=== PATIENT | female | born 1960 | race Caucasian/White ===

== ENCOUNTER 2025-06-22 05:42 | Inpatient (IN) | payer OTHER ==
[2025-06-14 14:05] LABS: LEUKOCYTE ESTERASE ,URINE NEGATIVE (Neg); NITRITES, URINE NEGATIVE (Neg); OCCULT BLOOD,URINE NEGATIVE (Neg)
[2025-06-14 14:08] LABS: UA COLLECTION TYPE CLN CATCH MIDSTREAM
[2025-06-14 14:09] LABS: MEAN PLATELET VOLUME 8.9 FL (7.4-10.4); PRE OP HEMATOCRIT 42.1 % (35.0-45.0); PRE OP HEMOGLOBIN 14.3 g/dL (12.0-16.0); PRE OP PLATELET COUNT 231 X10'3 (140-440); PRE OP WHITE BLOOD COUNT 8.6 10'3 (4.8-10.8); RED CELL DISTRIBUTION WIDTH 14.0 % (11.5-14.5)
--- NOTE | 2025-06-14 14:22 | ELECTROCARDIOGRAPH REPORT ---
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 MUNDO Mina Measurements Intervals [place] Rate: 67 P: 3 TN: 137 QRS: 53 QRSD: 88 T: 41 QT: 387 QTc: 409 Interpretive Statements Sinus rhythm Electronically Signed On 06-14-2025 17:27:[address] MUNDO Mina Please click the below link to view image of tracing.
[2025-06-14 14:23] LABS: PRE OP INR 1.0 INR; PRE OP PARTIAL THROMB. TIME 26.0 SECONDS (22-32); PRE OP PROTIME 10.1 SECONDS (9.0-12.0)
[2025-06-14 14:25] LABS: CREATININE 0.61 MG/DL (0.40-0.90); PRE OP ALT 27 U/L (30-65); PRE OP ANION GAP 5 (8-16); PRE OP AST 33 U/L (10-37); PRE OP BILIRUB, TOTAL 0.4 MG/DL (0.0-1.0); PRE OP GLUCOSE 93 MG/DL (70-104); PRE OP POTASSIUM 4.1 MMOL/L (3.4-5.1); PRE OP SODIUM 141 MMOL/L (135-145); TOTAL CARBON DIOXIDE 31.2 MMOL/L (24-32); eGFR > 90 ML/MIN
--- NOTE | 2025-06-14 15:07 | RADIOLOGY REPORT ---
EXAM: DI CHEST,TWO VIEWS CLINICAL HISTORY: pain COMPARISON: None TECHNIQUE: Frontal and lateral view of the chest was obtained FINDINGS: Lines and Tubes: None Lungs: No focal consolidation. Pleura: No effusion. No pneumothorax. Cardiomediastinal contours: Unremarkable Bones: No acute osseous abnormality. IMPRESSION: No acute cardiopulmonary disease.
--- NOTE | 2025-06-14 15:35 | VASCULAR REPORT ---
PROCEDURE: [facility] VENOUS Exam Date: 06/14/2025 01:49 PM History: Preop vein mapping Findings: Technique: Duplex Doppler evaluation of the superficial veins of the right and left lower extremities was perfor med including color Doppler and spectral/pulsed waveform analysis. Findings: Measurements of the lower extremity superficial veins in millimeters (mm) are provided below. RIGHT GREAT SAPHENOUS VEIN (GSV) in mm: 4.5 at proximal thigh, patent. 4.2 at mid thigh, patent. 3.2 at distal thigh, patent. LEFT GREAT SAPHENOUS VEIN (GSV) in mm: 3.8 at proximal thigh, patent. 3.7 at mid thigh, patent. 2.6 at distal thigh, patent. Impression: Lower extremity superficial venous mapping as detailed above.
[2025-06-15 08:56] LABS: ABG BASE EXCESS 2.0 mmol/L (-2.0-3.0); ABG HCO3 26.5 mmol/L (21.0-28.0); ABG OXYGEN SATURATION 95.5 % (94.0-98.0); ABG PCO2 (T) 41.2 mmHg (32.0-45.0); ABG PH (T) 7.427 (7.350-7.450); ABG PO2 (T) 77.9 mmHg (83.0-108.0); ALLEN'S TEST POSITIVE; FCOHb 0.0 % (0.5-1.5); FHHb 4.5 % (0.0-5.0); FIO2 21.0 mmHg/%; FMetHb 0.3 % (0.0-1.5); FO2Hb 95.2 % (94.0-98.0); MODE ROOM AIR; PATIENT TEMPERATURE 37.0; TOTAL HEMOGLOBIN 14.5 G/dl (12.0-16.0)
--- NOTE | 2025-06-15 13:45 | PROCEDURE NOTE - Respiratory ---
Procedure Note-Respiratory Providers to CC Copies To 1: SYLWIA BABIN MD; TYSHAWN GOMEZ III, MD Procedure Name: This is a spirometry study dated June 14, 2025. There was also a room air blood gas obtained from this patient on the same date. Spirometry measurements: There is significant reduction in the vital capacity and the FEV1 measurements. The FEV1 ratio is also reduced. Several of the flow rate measurements show reduction. Bronchodilator was not given as part of the study. Conclusion: This study is abnormal. There is evidence for obstructive ventilatory defect in the moderate category. These findings suggest a moderate degree of COPD, smoking-related. We have no previous studies for comparison. A blood gas was drawn from this patient while the patient was breathing room air. The blood pH is normal. The pCO2 is normal. The room air oxygen level is borderline reduced at 78 mmHg. MINH CANDELARIA MD Jun 15, 2025 13:45
[~2025-06-22] VITALS: Ht 157.5 cm; Wt 124.4 kg
[2025-06-22] VITALS (26 sets, daily range): BP systolic 100–152; BP diastolic 60–87; PULSE 76–89; RESP 10–20; TEMP 97.8; O2SAT 93–98
[2025-06-22] MEDS: Insulin Reg/NS 100units/100mL 100 ML IV SCH ×2 (05:30→10:30)
[~2025-06-22 05:42] MED LIST: ATOR10TA70 PO; dextrose 50%-water 50ml dispensing syringe IV PRN; insulin glargine (Lantus) pen - multi-dose SQ PRN
[2025-06-22] MEDS: metoprolol tartrate 12.5mg (1/2 tablet) PO ONE (06:12)
[2025-06-22] MEDS: mupirocin 2% nasal ointment 1gm UD NS ONE (06:13)
[2025-06-22] MEDS: VANCOMYCIN/H2O 1.5g/300mL PB 300 ML IV ONE (06:17)
[2025-06-22] MEDS: ringers solution, lacted 1,000 ML IV SCH (06:17)
[2025-06-22] MEDS: ceFAZolin 2gm/dext,iso 50mL 50 ML IV ONE (06:18)
[2025-06-22] MEDS ORDERED: vancomycin 1,000mg inj ONE (07:08)
[2025-06-22] MEDS: midazolam 1 mg/ML 2ml injection IV ONE (07:56)
[2025-06-22] MEDS ORDERED: MIDAZolam 1 MG/ML 5ML VIAL ONE (07:57)
[2025-06-22] MEDS ORDERED: SUfentanil 50mcg/ml 1ml amp IV ONE (07:58)
[2025-06-22] MEDS ORDERED: propofol inj 20 ML IV ONE (07:58)
[2025-06-22] MEDS ORDERED: potassium Cl 2 mEq/ml inj IV ONE (08:00)
[2025-06-22] MEDS ORDERED: rocuronium 10mg/ml inj IV ONE ×2 (08:00)
[2025-06-22 08:46] LABS: ABG BASE EXCESS 0.1 mmol/L (-2.0-3.0); ABG HCO3 25.2 mmol/L (21.0-28.0); ABG OXYGEN SATURATION 97.3 % (94.0-98.0); ABG PCO2 42.5 mmHg (32.0-45.0); ABG PH 7.391 (7.350-7.450); ABG PO2 95.8 mmHg (83.0-108.0); CL (ABG) 103 mmol/L (98-107); FCOHb 0.3 % (0.5-1.5); FHHb 2.7 % (0.0-5.0); FMetHb 0.2 % (0.0-1.5); FO2Hb 96.8 % (94.0-98.0); GLUCOSE (ABG) 131 mg/dl (65-95); IONIZED CA (ABG) 1.13 mmol/L (1.15-1.33); K (ABG) 4.5 mmol/L (3.40-4.50); TOTAL HEMOGLOBIN 13.1 G/dl (12.0-16.0)
[2025-06-22 08:53] LABS: ACT @ 1.70 U 259 SEC (193-297); ACT @ 2.84 U 360 SEC (260-420); BASELINE ACT 137 SEC (101-148); PATIENT WEIGHT 90.0k KG
[2025-06-22] MEDS ORDERED: BUPIVAcaine/PF 2.5mg/ml (0.25%) 10ml vial ONE (09:04)
[2025-06-22] MEDS ORDERED: LIDOcaine 1% 30ml preserv. free vial ONE (09:04)
[2025-06-22] MEDS: LIDOcaine 1% 30ml preserv. free vial IJ ONE (09:15)
[2025-06-22 09:20] LABS: ACTIVATED CLOTTING TIME 635.0 SEC (101-148)
[2025-06-22 09:29] LABS: ABG BASE EXCESS 0.3 mmol/L (-2.0-3.0); ABG HCO3 24.7 mmol/L (21.0-28.0); ABG OXYGEN SATURATION 99.2 % (94.0-98.0); ABG PCO2 39.2 mmHg (32.0-45.0); ABG PH 7.418 (7.350-7.450); ABG PO2 258.7 mmHg (83.0-108.0); CL (ABG) 103 mmol/L (98-107); FCOHb 0.3 % (0.5-1.5); FHHb 0.8 % (0.0-5.0); FMetHb 0.3 % (0.0-1.5); FO2Hb 98.6 % (94.0-98.0); GLUCOSE (ABG) 126 mg/dl (65-95); IONIZED CA (ABG) 1.02 mmol/L (1.15-1.33); K (ABG) 5.2 mmol/L (3.40-4.50); TOTAL HEMOGLOBIN 9.6 G/dl (12.0-16.0)
[2025-06-22 09:36] LABS: ACTIVATED CLOTTING TIME 514.0 SEC (101-148)
[2025-06-22 09:53] LABS: ABG BASE EXCESS -1.2 mmol/L (-2.0-3.0); ABG HCO3 24.1 mmol/L (21.0-28.0); ABG OXYGEN SATURATION 99.3 % (94.0-98.0); ABG PCO2 42.8 mmHg (32.0-45.0); ABG PH 7.369 (7.350-7.450); CL (ABG) 105 mmol/L (98-107); FCOHb 0.3 % (0.5-1.5); FHHb 0.7 % (0.0-5.0); FMetHb 0.0 % (0.0-1.5); FO2Hb 99.0 % (94.0-98.0); GLUCOSE (ABG) 140 mg/dl (65-95); IONIZED CA (ABG) 1.06 mmol/L (1.15-1.33); K (ABG) 5.4 mmol/L (3.40-4.50); TOTAL HEMOGLOBIN 10.1 G/dl (12.0-16.0)
[2025-06-22 10:03] LABS: ACTIVATED CLOTTING TIME 466.0 SEC (101-148)
[2025-06-22 10:20] LABS: ABG BASE EXCESS VENOUS -0.2 mmol/L (-2.0-3.0); ABG HCO3 VENOUS 26.5 mmol/L (22.0-29.0); ABG OXYGEN SATURATION VENOUS 68.6 % (60.0-85.0); ABG PCO2 VENOUS 53.4 mmHg (38.0-54.0); ABG PH (VENOUS) 7.313 (7.320-7.430); ABG PO2 VENOUS 37.2 mmHg (23.0-48.0); CL (ABG) 107 mmol/L (98-107); FCOHb VENOUS 0.1 % (0.5-1.5); FHHb VENOUS 31.3 %; FMetHb VENOUS 0.1 % (0.5-1.5); FO2Hb VENOUS 68.5 % (0-80.0); GLUCOSE (ABG) 136 mg/dl (65-95); K (ABG) 5.1 mmol/L (3.40-4.50); TOTAL HEMOGLOBIN 9.5 G/dl (12.0-16.0)
[2025-06-22 10:23] LABS: ACTIVATED CLOTTING TIME 115 SEC (101-148)
[2025-06-22] MEDS ORDERED: potassium Cl 40MEQ/270ML bag 250 ML IV PRN (10:30)
[2025-06-22] MEDS ORDERED: potassium CL 10mEq/100ml bag 100 ML IV PRN (10:30)
[2025-06-22] MEDS ORDERED: insulin glargine (Lantus) pen - multi-dose SQ PRN (10:30)
[2025-06-22] MEDS ORDERED: dextrose 50%-water 50ml dispensing syringe IV PRN (10:30)
[2025-06-22] MEDS ORDERED: potassium Cl 20 mEq SR tablet PO PRN (10:30)
[2025-06-22] MEDS ORDERED: morphine 4 MG/ML inj SYRINge IV PRN (10:30)
[2025-06-22] MEDS ORDERED: metoclopramide 5 mg/ml inj IV PRN (10:30)
[2025-06-22] MEDS ORDERED: potassium Cl 40MEQ/1/2NS 520ml 520 ML IV PRN (10:30)
[2025-06-22] MEDS ORDERED: bisacodyl 10mg suppository rectal RC PRN (10:30)
[2025-06-22] MEDS ORDERED: niCARDipine-NS 40mg/200ml IVPB 200 ML IV PRN (10:30)
[2025-06-22] MEDS ORDERED: potassium Cl 20mEq/100mL bag 100 ML IV PRN (10:30)
[2025-06-22] MEDS ORDERED: sodium phosphate inj. 15 MMOL in dextrose 5%-water 250 ML IV PRN (10:30)
[2025-06-22] MEDS ORDERED: sodium phosphate inj. 30 MMOL in dextrose 5%-water 250 ML IV PRN (10:30)
[2025-06-22] MEDS ORDERED: NORepinephrine 8mg/ 250ml NS 250 ML IV PRN (10:30)
[2025-06-22] MEDS ORDERED: magnesium sulf-water 4G/100mL 100 ML IV PRN (10:30)
[2025-06-22] MEDS ORDERED: magnesium sulf-water 2g/50mL 50 ML IV PRN (10:30)
[2025-06-22] MEDS ORDERED: mineral oil 133ml enema RC PRN (10:30)
--- NOTE | 2025-06-22 10:37 | OPERATIVE REPORT ---
Operative Report Operative Report Cardiovascular surgery operative report 22 June 2025 Preoperative diagnosis: Severe aortic stenosis, morbid obesity Postop diagnosis: Same Procedure: Aortic valve replacement using a 23 mm Inspiris pericardial aortic valve prosthesis Surgeon: Dr. Timo Cabrales branch assistant: Dr. Luisito Arnold and Christian Campos PA-C Anesthesia: General via endotracheal tube Dr. Nguyen Complications: None EBL: 200 mL Procedure: The patient is taken to the operating room placed in supine position. Following the induction of general oral endotracheal anesthesia and the placement of appropriate lines the chest, abdomen and bilateral lower extremities were prepped and draped sterilely. An upper sternotomy was performed Tabitha it off in the right 3rd interspace. The patient was systemically heparinized the pericardium was opened in midline. Single aortic and dual stage right atrial cannula placed for cardiopulmonary bypass. After ensuring an ACT of greater than 300 seconds cardiopulmonary bypass was instituted. The aorta was then crossclamped and the heart was arrested with cold blood [place] cardioplegia delivered antegrade through the aortic root. The aorta was opened transversely well above the right coronary orifice of the valve was inspected. It was tricuspid with significant calcification. The leaflets were excised and the annulus was debrided free of calcium. The annulus was then sized and a 23 mm Inspiris pericardial aortic valve prosthesis was chosen. This has implanted into the annulus using interrupted horizontal mattress sutures of pledgeted 2-0 Ethibond, placing the pledgets on the ventricular aspect. The valve was then seated and the sutures tied to complete the implant. The ascending aorta was copiously irrigated with cold saline solution. The aortotomy was then closed with a running 4-0 Prolene suture. The suture line was coated with a thin coating of bio glue for hemostatic purposes. Temporary pacing wires were then placed the anterior surface of the right ventricle. The patient was given 1 L of warm blood antegrade and a 32 [place] straight chest tube was placed anterior to the pericardium. It was brought out inferiorly and secured to skin with 1. Silk. Aortic crossclamp was removed and the patient was noted to returned into sinus rhythm. Ventilation resumed. The patient was then allowed to begin ejecting to a pressure of 80-90 mm with a systolic pressure while transesophageal echocardiography was used to confirm adequacy of de-airing. At that point she was weaned from cardiopulmonary bypass and decannulated in standard fashion. Protamine solution was administered to reverse heparinization and careful hemostasis was achieved throughout the mediastinum. The chest was then closed by 1st treating the sternal edges with vancomycin paste. The sternum was then reapproximated in the midline with interrupted [id number] of 7. Stainless steel wire. The midline fascia, subcutaneous tissue and skin were closed in layers. Sterile dressings were applied and the chest tube was attached to water-seal. The patient was then returned to the ICU in critical but stable condition, having tolerated the procedure satisfactorily. There were no complications. Sponge, needle and instrument counts were correct x2 at the end of the case. Christian Campos PA-C was present for and assisted throughout the entire procedure. TIMO CABRALES III, MD Jun 22, 2025 10:37
--- NOTE | 2025-06-22 11:04 | ELECTROCARDIOGRAPH REPORT ---
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 MUNDO Mina Measurements Intervals [place] Rate: 78 P: 72 FL: 178 QRS: 69 QRSD: 83 T: 62 QT: 401 QTc: 457 Interpretive Statements Sinus rhythm Low voltage, precordial leads Electronically Signed On 06-24-2025 20:18:[address] MUNDO Mina Please click the below link to view image of tracing.
[2025-06-22 11:11] LABS: ABG BASE EXCESS -1.8 mmol/L (-2.0-3.0); ABG HCO3 23.8 mmol/L (21.0-28.0); ABG OXYGEN SATURATION 96.3 % (94.0-98.0); ABG PCO2 (T) 42.1 mmHg (32.0-45.0); ABG PH (T) 7.366 (7.350-7.450); ABG PO2 (T) 83.8 mmHg (83.0-108.0); FCOHb 0.9 % (0.5-1.5); FHHb 3.7 % (0.0-5.0); FIO2 80.0 mmHg/%; FMetHb 0.3 % (0.0-1.5); FO2Hb 95.1 % (94.0-98.0); MODE VENT - SIMV/VC; PATIENT TEMPERATURE 36.1; PEEP 5 cm H2O; RESPIRATORY RATE 14 b/min; TIDAL VOLUME 500 mL; TOTAL HEMOGLOBIN 13.3 G/dl (12.0-16.0)
--- NOTE | 2025-06-22 11:25 | RADIOLOGY REPORT ---
EXAM: DI CHEST,SINGLE VIEW Indication: POST OP Technique: Single frontal view of the chest was obtained Comparison: DI CHEST,TWO VIEWS on DOS: 06/14/25 FINDINGS/IMPRESSION: Lines and Tubes: Endotracheal tube projects 5 cm above the domi. Enteric tube tip projects over th e expected region of the stomach right internal jugular central approach swan-Aretha catheter tip proje cts over the right main pulmonary artery. Additional right internal jugular central venous catheter t ip projects over superior vena cava. Mediastinal drains are visualized. Lungs: Left basilar opacity. Pleura: No effusion. No pneumothorax. Cardiomediastinal contours: Unremarkable Bones: No acute osseous abnormality. IMPRESSION: No acute cardiopulmonary disease.
[2025-06-22 11:33] LABS: MEAN PLATELET VOLUME 8.8 FL (7.4-10.4); RED CELL DISTRIBUTION WIDTH 14.1 % (11.5-14.5)
[2025-06-22 12:00] LABS: APTT 29 SECONDS (22-32); INR 1.1 INR
[2025-06-22 12:07] LABS: CREATININE 0.58 MG/DL (0.40-0.90); PHOSPHORUS 3.2 MG/DL (2.3-4.5); TOTAL CARBON DIOXIDE 26.5 MMOL/L (24-32); eCRCL 79 ML/MIN; eGFR > 90 ML/MIN
[2025-06-22] MEDS: albumin (Human) 5% 250ml 250 ML IV PRN (14:38)
[2025-06-22] MEDS: ceFAZolin/D5W- 1GM premix 50 ML IV SCH (15:54)
[2025-06-22] MEDS: ondansetron/PF 4mg/2ml inj IV PRN (16:35)
[2025-06-22] MEDS: HYDROcodone/acetaminophen 10/325mg tab PO PRN ×2 (16:36→23:25)
[2025-06-22 17:29] LABS: MEAN PLATELET VOLUME 8.9 FL (7.4-10.4); RED CELL DISTRIBUTION WIDTH 14.2 % (11.5-14.5)
[2025-06-22 17:37] LABS: CREATININE 1.03 MG/DL (0.40-0.90); PHOSPHORUS 4.0 MG/DL (2.3-4.5); TOTAL CARBON DIOXIDE 22.5 MMOL/L (24-32); eCRCL 44 ML/MIN; eGFR 54 ML/MIN
[2025-06-22] MEDS: mupirocin 2% nasal ointment 1gm UD NS SCH (18:42)
[2025-06-22] MEDS: vancomycin/NS 1 GM ADD-VANTAGE 250 ML IV SCH (18:42)
--- NOTE | 2025-06-22 18:57 | CARDIOLOGY REPORT ---
APPROVED REPORT EXAM: Intraoperative transesophageal 2D, focused 3D, spectral and color flow Doppler echocardiogram . Study contains pre- and post-op images. Patient Location: CVOR Blood Pressure: 148/77 mmHg Heart Rate: 81 bpm Rhythm: NSR Indications AORTIC STENOSIS AORTIC VALVE REPLACEMENT 23mm GRIMES INSPIRIS AORTIC VALVE BELLO PROBE PASSED BY: Rick Solano MD BURR PICKER: Gunnar Rubio MD/CV SURGEON: Josephine Cabrales MD PRIOR ECHOCARDIOGRAM: 02/23/2025 CVC LVEF 60%; m CLVH; sev , KENDALL 0.7 cm2, peak/mean gradient 84/5 3 mmHg, peak velocity 4.57 m/s; mod MAC; tr TR LEFT VENTRICLE PRE: Normal LV size and function. Mild concentric hypertrophy. LVEF is 60-65%. POST: Unchanged. RIGHT VENTRICLE PRE: RV is normal size and function. POST: unchanged. ATRIA PRE: The left atrium size is normal. Left atrial appendage is visualized in multiple planes and appea rs normal without debris. Left upper pulmonary vein identified and isolated by 2D and color Doppler. POST: unchanged. AORTIC VALVE PRE: Trileaflet AV appears heavily calcified with severe stenosis. No insufficiency. KENDALL: 0.6 cmsq; Pkv: 4.38 m/sec; Gradients: 77/44 mmHG. No insufficiency. POST: 23 MM GRIMES RESILIA valve appears w ell seated and functioning normally with trace paravalvular leak at 12 o'clock position in the BELLO SA X BASE view. Peak / mean gradients are 31 / 14 mmHg. Peak velocity is measure at at 2.81 m/sec. MITRAL VALVE PRE: The mitral valve is normal in structure. Trace regurgitation. POST: mild regurgitation. TRICUSPID VALVE PRE: The tricuspid valve is normal in structure. Trace regurgitation. POST: unchanged. PULMONIC VALVE PRE: The pulmonary valve is normal in structure. No insufficiency. Baird-Aretha catheter in the right he art across the pulmonic valve. POST: unchanged. GREAT VESSELS PRE: The aortic root is normal in size. The ascending aorta is normal in size. POST: unchanged. PERICARDIUM PRE: Normal pericardium. No effusion. POST: unchanged. Fat pad present. CONCLUSION PRE: Normal LV size and function. Mild concentric hypertrophy. LVEF is 60-65%. POST: Unchanged. PRE: RV is normal size and function. POST: unchanged. PRE: The left atrium size is normal. Left atrial ap pendage is visualized in multiple planes and appears normal without debris. Left upper pulmonary vein identified and isolated by 2D and color Doppler. POST: unchanged. PRE: Trileaflet AV appears heavil y calcified with severe stenosis. No insufficiency. KENDALL: 0.6 cmsq; Pkv: 4.38 m/sec; Gradients: 77/44 mmHG. No insufficiency. POST: 23 MM GRIMES RESILIA valve appears well seated and functioning normal ly with trace paravalvular leak at 12 o'clock position in the BELLO SAX BASE view. Peak / mean gradient s are 31 / 14 mmHg. Peak velocity is measure at at 2.81 m/sec. PRE: The mitral valve is normal in str ucture. Trace regurgitation. POST: mild regurgitation. PRE: The tricuspid valve is normal in structu re. Trace regurgitation. POST: unchanged. PRE: Normal pericardium. No effusion. POST: unchanged. Fa t pad present. Conclusion PRE: Normal LV size and function. Mild concentric hypertrophy. LVEF is 60-65%. POST: Unchanged. PRE: RV is normal size and function. POST: unchanged. PRE: The left atrium size is normal. Left atrial appendage is visualized in multiple planes and raj ears normal without debris. Left upper pulmonary vein identified and isolated by 2D and color Doppler . POST: unchanged. PRE: Trileaflet AV appears heavily calcified with severe stenosis. No insufficiency. KENDALL: 0.6 cm sq; Pkv: 4.38 m/sec; Gradients: 77/44 mmHG. No insufficiency. POST: 23 MM GRIMES RESILIA valve raj ears well seated and functioning normally with trace paravalvular leak at 12 o'clock position in the BELLO SAX BASE view. Peak / mean gradients are 31 / 14 mmHg. Peak velocity is measure at at 2.81 m/se c. PRE: The mitral valve is normal in structure. Trace regurgitation. POST: mild regurgitation. PRE: The tricuspid valve is normal in structure. Trace regurgitation. POST: unchanged. PRE: Normal pericardium. No effusion. POST: unchanged. Fat pad present.
[2025-06-23] VITALS (25 sets, daily range): BP systolic 121–167; BP diastolic 62–96; PULSE 86–113; RESP 8–16; O2SAT 90–98
[2025-06-23 02:41] LABS: MEAN PLATELET VOLUME 9.3 FL (7.4-10.4); RED CELL DISTRIBUTION WIDTH 14.3 % (11.5-14.5)
[2025-06-23 03:11] LABS: CREATININE 0.81 MG/DL (0.40-0.90); PHOSPHORUS 4.0 MG/DL (2.3-4.5); TOTAL CARBON DIOXIDE 24.6 MMOL/L (24-32); eCRCL 56 ML/MIN; eGFR 71 ML/MIN
--- NOTE | 2025-06-23 06:08 | RADIOLOGY REPORT ---
CHEST RADIOGRAPH Indication: POST OP Technique: Single frontal view of the chest was obtained COMPARISON: DI CHEST,SINGLE VIEW on DOS: 06/22/25, DI CHEST,TWO VIEWS on DOS: 06/14/25 FINDINGS: Lines and Tubes: Status post interval extubation and removal of enteric catheter. Right internal jug ular central venous catheter unchanged. Lungs: Clear Pleura: No effusion. No pneumothorax. Cardiomediastinal contours: Cardiomegaly status post median sternotomy. Bones: Unremarkable IMPRESSION: 1. Cardiomegaly. Otherwise, no acute disease. 2. Status post interval extubation and removal of enteric catheter. 3. Right internal jugular central venous catheter.
[2025-06-23 07:45] LABS: ABG PO2 432.1 mmHg (83.0-108.0)
[2025-06-23 07:46] LABS: IONIZED CA (ABG) 2.12 mmol/L (1.15-1.33)
--- NOTE | 2025-06-23 08:16 | PROGRESS NOTE ---
Progress Note CV Providers to CC ~ Antibiotics Ordered?: No Subjective Subjective S/P AVR via mini-sternotomy POD # 1. She is alert, up to chair. No nausea. A bit tachy at 104, hasn't had her AM B franchesca yet. Objective Vitals Vital Signs Date Time Temp Pulse Resp B/P (MAP) Pulse Ox O2 Delivery O2 Flow Rate FiO2 06/23/25 06:00 98.2 104 13 145/72 (96) 96 Nasal Cannula 4.0 06/22/25 20:00 80 Lab Results: 06/23/25 0220 06/23/25 0220 Objective Lungs - a bit diminished at bases Heart - RRR, ST Abd/Extr - OK Incisions - CDI Coagulation Studies Laboratory Tests Test 06/22/25 08:53 06/22/25 10:27 06/22/25 11:05 Patient Sex (Coag) F Patient Height (Coag) 157cm Patient Weight (Coag) 90.0k KG Patient Blood Volume 4524 ML Pump Volume 1500 ML Total Blood Volume 6024 ML Projected Heparin Concentration 2.8 MG/KG Heparin [place] 91 Calculated Heparin Bolus 75262 UNITS Activated Coagulation Time Baseline 137 SEC (101-148) Activated Coag Time 1.70 U/mL 259 SEC (193-297) Activated Coag Time 2.84 U/mL 360 SEC (260-420) Heparin Level (COAG) 0 MG/KG Calculated Heparin Req (Hep Assay) 26996 UNITS Calculated Protamine Req (Hep Assay 0 MG Activated Clotting Time 115 SEC (101-148) Prothrombin Time 11.3 SECONDS (9.0-12.0) INR International Normalized Ratio 1.1 INR Activated Partial Thromboplast Time 29 SECONDS (22-32) Coagulation Comments Cardiac Rhythm: Sinus Rhythm Problem\Assessment\Plan Additional Plan POD # 1 ST B franchesca Ambulate. Off gtt. Hyperglycemic protocol Sepsis Screening Reassessment Date: Jun 23, 2025 Supervising Co-signing Provider: ERICKA Oneal Jun 23, 2025 08:16
[2025-06-23] MEDS: metoprolol tartrate 12.5mg (1/2 tablet) PO SCH (08:17)
[2025-06-23] MEDS ORDERED: dextrose 50%-water 50ml dispensing syringe IV PRN ×2 (08:20)
[2025-06-23] MEDS ORDERED: glucagon, human recombinant 1mg kit SUBCUT PRN (08:20)
[2025-06-23] MEDS ORDERED: DEXTROSE 15 GM of carb/4 tabs (each vial/BOTTLE has 4 tablets) PO PRN ×2 (08:20)
[2025-06-23] MEDS: INSULIN LISPRO 100 UNIT/ML INSULN.PEN MULTI-DOSE SQ SCH (14:06)
[2025-06-23] MEDS: heparin, porcine 5000 units/ml vial SQ SCH (16:33)
[2025-06-23] MEDS: insulin glargine (Lantus) pen - multi-dose SQ SCH (21:14)
[2025-06-24] VITALS (20 sets, daily range): BP systolic 117–146; BP diastolic 59–90; PULSE 85–100; RESP 8–20; TEMP 97.8–98.5; O2SAT 90–97
[2025-06-24 01:44] LABS: MEAN PLATELET VOLUME 9.3 FL (7.4-10.4); RED CELL DISTRIBUTION WIDTH 14.3 % (11.5-14.5)
[2025-06-24 02:06] LABS: CREATININE 0.98 MG/DL (0.40-0.90); PHOSPHORUS 4.2 MG/DL (2.3-4.5); TOTAL CARBON DIOXIDE 26.7 MMOL/L (24-32); eCRCL 46 ML/MIN; eGFR 57 ML/MIN
--- NOTE | 2025-06-24 08:01 | PROGRESS NOTE ---
Progress Note CV Providers to CC ~ Antibiotics Ordered?: No Subjective Subjective S/P AVR via mini-sternotomy POD # 2. Up to chair this morning. Duarte out last night. Chest drain removed late afternoon yesterday. Objective Vitals Vital Signs Date Time Temp Pulse Resp B/P (MAP) Pulse Ox O2 Delivery O2 Flow Rate FiO2 06/24/25 07:54 20 06/24/25 06:19 94 137/77 (97) 96 Nasal Cannula 4.0 06/24/25 04:00 96.8 06/23/25 10:27 36 Lab Results: 06/24/25 0136 06/24/25 013 Objective Lungs - fairly clear Heart - RRR, SR, rate mid-90's Abd/extr - OK Incisions - CDI Coagulation Studies Laboratory Tests Test 06/22/25 08:53 06/22/25 10:27 06/22/25 11:05 Patient Sex (Coag) F Patient Height (Coag) 157cm Patient Weight (Coag) 90.0k KG Patient Blood Volume 4524 ML Pump Volume 1500 ML Total Blood Volume 6024 ML Projected Heparin Concentration 2.8 MG/KG Heparin [place] 91 Calculated Heparin Bolus 46273 UNITS Activated Coagulation Time Baseline 137 SEC (101-148) Activated Coag Time 1.70 U/mL 259 SEC (193-297) Activated Coag Time 2.84 U/mL 360 SEC (260-420) Heparin Level (COAG) 0 MG/KG Calculated Heparin Req (Hep Assay) 84069 UNITS Calculated Protamine Req (Hep Assay 0 MG Activated Clotting Time 115 SEC (101-148) Prothrombin Time 11.3 SECONDS (9.0-12.0) INR International Normalized Ratio 1.1 INR Activated Partial Thromboplast Time 29 SECONDS (22-32) Coagulation Comments Cardiac Rhythm: Sinus Rhythm Problem\Assessment\Plan Additional Plan POD # 2 She is on 4L NC Needs to push IS/ ambulation. Uptitrate B franchesca. Lasix. To PCU. Sepsis Screening Reassessment Date: Jun 24, 2025 Supervising Co-signing Provider: ERICKA Oneal Jun 24, 2025 08:01
[2025-06-24] MEDS ORDERED: magnesium sulf-water 4G/100mL 100 ML IV PRN (08:15)
[2025-06-24] MEDS ORDERED: potassium Cl 20 mEq SR tablet PO PRN ×2 (08:15)
[2025-06-24] MEDS ORDERED: potassium Cl 40MEQ/270ML bag 250 ML IV PRN (08:15)
[2025-06-24] MEDS ORDERED: potassium Cl 20mEq/100mL bag 100 ML IV PRN (08:15)
[2025-06-24] MEDS ORDERED: potassium CL 10mEq/100ml bag 100 ML IV PRN (08:15)
[2025-06-24] MEDS ORDERED: potassium Cl 40MEQ/1/2NS 520ml 520 ML IV PRN (08:15)
[2025-06-24] MEDS: metoprolol tartrate 12.5mg (1/2 tablet) PO SCH (09:56)
[2025-06-24] MEDS: pantoprazole 40mg Tablet.DR PO SCH (10:01)
[2025-06-24] MEDS: JUVEN Shake w/Arg/Glut/Ca2+Bmb (Juven 19.3gm) pkt 240ml PO SCH (17:24)
[2025-06-24] MEDS: magnesium Cl slow-release 64mg tablet PO SCH (21:02)
[2025-06-24] MEDS: magnesium hydroxide 30ml (MOM) UD suspension PO PRN (21:06)
[2025-06-25] VITALS (9 sets, daily range): BP systolic 98–137; BP diastolic 65–75; PULSE 85–96; RESP 12–18; TEMP 96.9–98.9; O2SAT 90–97
[2025-06-25 01:07] LABS: MEAN PLATELET VOLUME 9.1 FL (7.4-10.4); RED CELL DISTRIBUTION WIDTH 14.1 % (11.5-14.5)
[2025-06-25 01:16] LABS: CREATININE 0.68 MG/DL (0.40-0.90); TOTAL CARBON DIOXIDE 32.1 MMOL/L (24-32); eCRCL 67 ML/MIN; eGFR 87 ML/MIN
[2025-06-25] MEDS: lactose-reduced food (Ensure Enlive) - 237ml bottle PO SCH (07:30)
--- NOTE | 2025-06-25 09:00 | RADIOLOGY REPORT ---
CHEST RADIOGRAPH Indication: POST OP Technique: Single frontal view of the chest was obtained COMPARISON: DI CHEST,SINGLE VIEW on DOS: 06/23/25, DI CHEST,SINGLE VIEW on DOS: 06/22/25, DI CHEST,TWO VIEWS on DOS: 06/14/25 FINDINGS: Lines and Tubes: Median sternotomy Lungs: Congestion Pleura: No effusion. No pneumothorax. Cardiomediastinal contours: Cardiomegaly Bones: Unremarkable IMPRESSION: Pulmonary vascular congestion
--- NOTE | 2025-06-25 09:31 | PROGRESS NOTE ---
Progress Note CV Providers to CC ~ Progress Note: POD#3 AVR Central Line/PICC still needed: N\A Duarte Indications Met/Not Met: F/C Indications Not Met Antibiotics Ordered?: No Subjective Subjective Patient feeling fairly well this morning. Appetite poor but slowly improving. Objective Vitals Vital Signs Date Time Temp Pulse Resp B/P (MAP) Pulse Ox O2 Delivery O2 Flow Rate FiO2 06/25/25 08:04 87 06/25/25 07:12 97.1 14 132/70 (90) 90 Nasal Cannula 2.0 06/24/25 20:00 28 Lab Results: 06/25/25 0052 06/25/25 0052 Objective Lungs a little diminished at bases. Cardiac exam regular rate rhythm with the E crisp S2. No rubs or murmurs. Sternal incision clean and dry. No peripheral edema. Coagulation Studies Laboratory Tests Test 06/22/25 08:53 06/22/25 10:27 06/22/25 11:05 Patient Sex (Coag) F Patient Height (Coag) 157cm Patient Weight (Coag) 90.0k KG Patient Blood Volume 4524 ML Pump Volume 1500 ML Total Blood Volume 6024 ML Projected Heparin Concentration 2.8 MG/KG Heparin [place] 91 Calculated Heparin Bolus 78091 UNITS Activated Coagulation Time Baseline 137 SEC (101-148) Activated Coag Time 1.70 U/mL 259 SEC (193-297) Activated Coag Time 2.84 U/mL 360 SEC (260-420) Heparin Level (COAG) 0 MG/KG Calculated Heparin Req (Hep Assay) 51498 UNITS Calculated Protamine Req (Hep Assay 0 MG Activated Clotting Time 115 SEC (101-148) Prothrombin Time 11.3 SECONDS (9.0-12.0) INR International Normalized Ratio 1.1 INR Activated Partial Thromboplast Time 29 SECONDS (22-32) Coagulation Comments Cardiac Rhythm: Sinus Rhythm, BBB Problem\Assessment\Plan Additional Plan Doing well following aortic valve replacement. Need to continue pushing ambulation as well as insulin spirometry. We will give another dose of Lasix for postoperative volume overload. She will be ready for discharge in 1-2 days. TYSHAWN GOMEZ III, MD Jun 25, 2025 09:31
[2025-06-25] MEDS: JUVEN Smoothie Arginine/Glut./Ca2+Bmb (Juven 19.3pkt) 240ml cup PO SCH (12:30)
[2025-06-25] MEDS: magnesium sulf-water 2g/50mL 50 ML IV PRN (21:18)
[2025-06-26 02:00] VITALS: BP 133/72; PULSE 86; RESP 13; TEMP 98; O2SAT 97
[2025-06-26 06:00] VITALS: BP 145/65; PULSE 90; RESP 20; TEMP 97.9; O2SAT 97
[2025-06-26 06:29] LABS: MEAN PLATELET VOLUME 9.1 FL (7.4-10.4); RED CELL DISTRIBUTION WIDTH 14.2 % (11.5-14.5)
[2025-06-26 06:49] LABS: CREATININE 0.65 MG/DL (0.40-0.90); TOTAL CARBON DIOXIDE 36.9 MMOL/L (24-32); eCRCL 70 ML/MIN; eGFR > 90 ML/MIN
--- NOTE | 2025-06-26 09:10 | PROGRESS NOTE ---
Progress Note CV Providers to CC ~ Progress Note: POD#4 AVR Duarte Indications Met/Not Met: F/C Indications Not Met Antibiotics Ordered?: No Subjective Subjective Patient without complaints today. Anxious to go home Objective Vitals Vital Signs Date Time Temp Pulse Resp B/P (MAP) Pulse Ox O2 Delivery O2 Flow Rate FiO2 06/26/25 02:00 98.0 86 13 133/72 (92) 97 Nasal Cannula 2.0 06/25/25 20:00 28 Lab Results: 06/26/25 0559 06/26/25 0559 Objective Lungs fairly clear. Good aeration throughout. Cardiac exam regular rate and rhythm with crisp S2. No murmur. Sternal incision clean and dry. No peripheral edema. Coagulation Studies Laboratory Tests Test 06/22/25 08:53 06/22/25 10:27 06/22/25 11:05 Patient Sex (Coag) F Patient Height (Coag) 157cm Patient Weight (Coag) 90.0k KG Patient Blood Volume 4524 ML Pump Volume 1500 ML Total Blood Volume 6024 ML Projected Heparin Concentration 2.8 MG/KG Heparin [place] 91 Calculated Heparin Bolus 71042 UNITS Activated Coagulation Time Baseline 137 SEC (101-148) Activated Coag Time 1.70 U/mL 259 SEC (193-297) Activated Coag Time 2.84 U/mL 360 SEC (260-420) Heparin Level (COAG) 0 MG/KG Calculated Heparin Req (Hep Assay) 31456 UNITS Calculated Protamine Req (Hep Assay 0 MG Activated Clotting Time 115 SEC (101-148) Prothrombin Time 11.3 SECONDS (9.0-12.0) INR International Normalized Ratio 1.1 INR Activated Partial Thromboplast Time 29 SECONDS (22-32) Coagulation Comments Cardiac Rhythm: Sinus Rhythm Problem\Assessment\Plan Additional Plan Doing well following aortic valve replacement. Ready for discharge to home today. We will see back in follow up in two weeks for recheck. Instructions reviewed with the patient. TYSHAWN GOMEZ III, MD Jun 26, 2025 09:10
[2025-06-26 09:15] VITALS: BP_SYST 145; O2SAT 94
[2025-06-26] MEDS ORDERED: ASPI81TA53 PO (09:26)
[2025-06-26] MEDS ORDERED: LOP25T PO (09:26)
[2025-06-26] MEDS ORDERED: HYDR-3972 PO (09:26)
--- NOTE | 2025-06-26 23:23 | DISCHARGE SUMMARY ---
DATE OF DISCHARGE: 06/26/2025 DICTATING PHYSICIAN: Christian Campos ADMITTING PHYSICIAN: Timo Cabrales MD CARDIOLOGY: Haris Rubio MD PREOPERATIVE DIAGNOSES: Severe aortic valve stenosis, history of obesity, history of hypertension. DISCHARGE DIAGNOSES: Severe aortic valve stenosis, history of obesity, history of hypertension, status post aortic valve replacement via mini sternotomy. COMPLICATIONS: Postoperatively none. CONDITION ON DISCHARGE: Stable. PROGNOSIS: Good. SUMMARY: This is a very pleasant 64-year-old female patient who has a lifelong history of a heart murmur. She was told a year ago that it was beginning to narrow and her symptoms included increasing exertional dyspnea as well as baseline shortness of breath. Most recent echocardiogram demonstrated a valve area of 0.7 with velocity greater than 4 meters per second across the valve. Cardiac catheterization by Dr. Lopez showed only minor luminal irregularities of a dominant right coronary. Left ventricular function was preserved. The patient was admitted electively and taken to the operating room on 06/22/2025. Name of the operation is aortic valve replacement with a 23-mm Inspiris pericardial aortic valve prosthesis via limited upper sternotomy. Following the operation, the patient was transferred to the CICU in stable condition. The following morning, she was awake, alert, and extubated. She was up to the chair. Initially was a bit tachycardic. Her beta franchesca was up titrated. She was ambulated. Hyperglycemic protocol was initiated. Late on postop day #1, her chest drain was removed along with her urinary catheter. She was transitioned to the progressive care unit. She was given some diuretics. She is now on room air, ambulating on her own without any difficulty. Labs today, H and H 11.3 and 33.5, creatinine 0.65. The incisions are healing nicely. She has been up and showering and is ambulating on her own as mentioned. She was felt to be stable for discharge home today. DISCHARGE PROGRAM: Followup appointment with Dr. Cabrales's office in 2 weeks, with Dr. Rubio in 4 weeks and with her primary physician in 6 weeks. ACTIVITY: As per cardiac rehab instructions. She is instructed to take short showers and to observe sternal precautions. No heavy lifting. No driving. DIET: She will be on a regular diet, transitioning to a heart-healthy diet as tolerated. MEDICATIONS ON DISCHARGE: Will include aspirin 81 mg p.o. daily, [place] 10/325 mg one p.o. every 6 hours p.r.n. pain, Lopressor 25 mg p.o. b.i.d. and Lipitor 10 mg p.o. daily as at home. Christian Cabrales MD TID: [id number] RECEIPT: [id number] TSERING/CHARLIE cc: Haris Rubio MD
== END 2025-06-26 12:06 | disposition home or self-care (01) | DRG 220 ==
LOC: PAS IN 05:42 → CICU 2S 09:44 → PCU 3S 06-24 12:30
PROVIDERS: ADMIT Thoracic Surgery (Cardiothoracic Vascular Surgery); ATTEND Thoracic Surgery (Cardiothoracic Vascular Surgery)
PROC: 5A1221Z Performance of Cardiac Output, Continuous (ICD-10-PCS; 2025-06-22)
PROC: B24BZZ4 Ultrasonography of Heart with Aorta, Transesophageal (ICD-10-PCS; 2025-06-22)
PROC: 02RF08Z Replacement of Aortic Valve with Zooplastic Tissue, Open Approach (ICD-10-PCS; principal; 2025-06-22 07:58)
DX: I35.0 Nonrheumatic aortic (valve) stenosis (principal); Z68.43 Body mass index [BMI] 50.0-59.9, adult; I10 Essential (primary) hypertension; E66.01 Morbid (severe) obesity due to excess calories; Z79.899 Other long term (current) drug therapy
CPT/HCPCS: 93312; 93325; Z7506; Z7508; 36415; 36600; 71045; 71046; 76376; 80048; 80053; 81003; 82330; 82435; 82803; 82947; 82948; 83036; 83735; 84100; 84132; 84295; 85018; 85025; 85347; 85610; 85730; 86870; 86885; 86900; 86901; 86902; 86905; 86920; 86922; 87081; 93005; 93970; 94002; 94010; 94664; 94668; 94760; 97116; 97162; 97530; A4333; A4615; A4618; A6212; A6213; A6258; A6449; A7000; A7048; C1751; G0378; J0169; J0690; J1644; J1815; J1938; J2003; J2150; J2250; J2270; J2405; J2704; J2720; J2919; J3373; J3375; J3480; J3490; J7030; J7040; J7050; J7120; P9045; P9047